=== PATIENT | female | born 1995 | race Caucasian/White ===

== ENCOUNTER 2020-12-16 04:48 | Inpatient (IN) | payer OTHER, SELFPAY ==
[~2020-12-16] VITALS: Ht 157.5 cm; Wt 73.5 kg
[2020-12-16] MEDS ORDERED: NALBUPHINE HCL 10 MG/ML AMP IVP PRN ×2 (05:45→17:45)
[2020-12-16] MEDS ORDERED: TERBUTALINE SULFATE 1 MG/ML VIAL SUBCUT ONE (05:45)
[2020-12-16] MEDS ORDERED: OXYTOCIN/0.9 % SODIUM CHLORIDE 1,000 ML IV SCH ×2 (05:45→18:15)
[2020-12-16] MEDS ORDERED: LR 1,000 ML IV ONE (05:45)
[2020-12-16 06:27] LABS: BASOPHILS % (AUTO) 0.4 % (0.0-2.0); EOSINOPHILS % (AUTO) 0.4 % (0.0-4.0); HEMATOCRIT 38.2 % (36-48); HEMOGLOBIN 13.1 g/dL (12.0-16.0); LYMPHOCYTES % (AUTO) 31.8 % (20.5-51.5); MEAN CORPUSCULAR HEMOGLOBIN 31 pg (27-31); MEAN CORPUSCULAR HGB CONC 34 % (32-36); MEAN CORPUSCULAR VOLUME 91 fL (79.0-98.0); MONOCYTES # (AUTO) 0.9 K/uL (0.0-1.0); MONOCYTES % (AUTO) 9.1 % (1.7-9.3); NEUTROPHILS # (AUTO) 5.5 K/uL (1.8-7.7); NEUTROPHILS % (AUTO) 58.3 % (40.0-70.0); PLATELET COUNT (AUTO) 291 K/uL (130-430); RED BLOOD CELL COUNT(AUTO) 4.22 MIL/uL (4.2-6.2); RED CELL DISTRIBUTION WIDTH 13.2 % (9.0-15.0); WHITE BLOOD COUNT (AUTO) 9.4 K/uL (4.8-10.8)
[2020-12-16] MEDS: LR 1,000 ML IV SCH ×5 (06:37→16:39)
[2020-12-16 08:04] VITALS: BP_SYST 118
[2020-12-16] MEDS ORDERED: ROPIVACAINE HCL/PF 0.2% 200 ML ONE (12:54)
[2020-12-16] MEDS ORDERED: fentaNYL CITRATE/PF 100 MCG/2 ML AMP ONE (12:54)
[2020-12-16] MEDS ORDERED: CEFAZOLIN 2 GM IVPB PREMIX 50 ML IV ONE (16:45)
[2020-12-16] MEDS ORDERED: NS IRRIG SOLN 1000 ML IR ONE (17:06)
[2020-12-16] MEDS ORDERED: LR 1,000 ML IV.SOLN IV ONE (17:06)
[2020-12-16] MEDS ORDERED: ONDANSETRON HCL 4 MG/2 ML VIAL IVP ONE (17:06)
[2020-12-16] MEDS ORDERED: MORPHINE SULFATE 10MG/10ML PF AMP EP ONE (17:06)
[2020-12-16] MEDS ORDERED: NALOXONE HCL 0.4 MG/ML AMP (NARCAN) IVP PRN ×3 (17:45→18:15)
[2020-12-16] MEDS ORDERED: MORPHINE SULFATE 10MG/10ML PF AMP EP SCH (17:45)
[2020-12-16] MEDS ORDERED: ONDANSETRON HCL 4 MG/2 ML VIAL IVP PRN ×2 (17:45)
[2020-12-16] MEDS ORDERED: KETOROLAC TROMETHAMINE 60 MG/2 ML VIAL IM PRN (17:45)
[2020-12-16] MEDS ORDERED: LR 500 ML IV ONE (17:45)
[2020-12-16] MEDS ORDERED: FENT2mCg/mL-ROPIVA0.2%/NS EPID 200 ML EP SCH (17:45)
[2020-12-16] MEDS ORDERED: fentaNYL CITRATE/PF 100 MCG/2 ML AMP IVP PRN ×2 (17:45)
[2020-12-16] MEDS ORDERED: METOCLOPRAMIDE HCL 10 MG/2 ML VIAL IVP PRN (17:45)
[2020-12-16] MEDS ORDERED: OXYCODONE/ACETAMINOPHEN *10*mg/325 mg TABLET PO PRN (18:15)
[2020-12-16] MEDS ORDERED: RHO(D) IMMUNE GLOBULIN/MALTOSE 1500 UNITS/1.3 ML (WINHRO) IM PRN (18:15)
[2020-12-16] MEDS ORDERED: LR 1,000 ML IV SCH (18:15)
[2020-12-16] MEDS ORDERED: TEMAZEPAM 15 MG CAPSULE PO PRN (18:15)
[2020-12-16] MEDS ORDERED: HYDROcodone/ACETAMIN 5-325 MG TAB (NORCO/ VICODIN) PO PRN (18:15)
[2020-12-16] MEDS ORDERED: ANUSOL 1 EA SUPP.RECT (PREPARATION H) RC PRN (18:15)
[2020-12-16] MEDS ORDERED: LANOLIN 7 GM OINT. TP PRN (18:15)
[2020-12-16] MEDS ORDERED: OXYCODONE/ACETAMINOPHEN 5-325 TABLET PO PRN (18:15)
[2020-12-16] MEDS ORDERED: BISACODYL 10 MG/SUPPOSITORY RC PRN (18:15)
[2020-12-16] MEDS ORDERED: DIPH-TET-PERTUS Vaccine 0.5 ML VIAL (ADACEL) I.M. PRN (18:15)
[2020-12-16] MEDS ORDERED: MEASLES,MUMPS&RUBELLA VACC/PF 12500 UNIT/0.5 ML VIAL SUBQ PRN (18:15)
[2020-12-16 18:17] VITALS: BP_SYST 141
[2020-12-16] MEDS: DIPHENHYDRAMINE INJ 50 MG/ML VIAL IVP PRN (20:59)
[2020-12-16] MEDS ORDERED: SENNOSIDES/DOCUSATE SODIUM 1 TAB TABLET(SENOKOT-S) PO SCH (21:00)
[2020-12-17] MEDS: CEFAZOLIN 1 GM IVPB PREMIX 50 ML IV SCH ×3 (00:04→11:55)
[2020-12-17] MEDS: DIPHENHYDRAMINE INJ 50 MG/ML VIAL IVP PRN ×2 (01:05→06:03)
[2020-12-17] MEDS: KETOROLAC TROMETHAMINE 30 MG VIAL IVP SCH ×4 (06:52→23:35)
[2020-12-17 08:19] LABS: BASOPHILS % (AUTO) 0.2 % (0.0-2.0); EOSINOPHILS % (AUTO) 0.1 % (0.0-4.0); HEMATOCRIT 34.4 % (36-48); HEMOGLOBIN 11.8 g/dL (12.0-16.0); LYMPHOCYTES # (AUTO) 2.3 K/uL (1.0-5.5); LYMPHOCYTES % (AUTO) 18.4 % (20.5-51.5); MEAN CORPUSCULAR HEMOGLOBIN 32 pg (27-31); MEAN CORPUSCULAR HGB CONC 34 % (32-36); MEAN CORPUSCULAR VOLUME 92 fL (79.0-98.0); MONOCYTES # (AUTO) 1.1 K/uL (0.0-1.0); MONOCYTES % (AUTO) 8.9 % (1.7-9.3); NEUTROPHILS # (AUTO) 8.9 K/uL (1.8-7.7); NEUTROPHILS % (AUTO) 72.4 % (40.0-70.0); PLATELET COUNT (AUTO) 229 K/uL (130-430); RED BLOOD CELL COUNT(AUTO) 3.74 MIL/uL (4.2-6.2); RED CELL DISTRIBUTION WIDTH 13.3 % (9.0-15.0); WHITE BLOOD COUNT (AUTO) 12.3 K/uL (4.8-10.8)
[2020-12-17] MEDS ORDERED: WITCH HAZEL LEAF 1 MED.PAD MED.PAD TP ONE (16:45)
[2020-12-17] MEDS ORDERED: DERMOPLAST SPRAY TP PRN (16:45)
[2020-12-17] MEDS: IBUPROFEN 600 MG TABLET PO SCH (23:37)
[2020-12-18] MEDS: IBUPROFEN 600 MG TABLET PO SCH ×3 (05:39→18:34)
[2020-12-18] MEDS ORDERED: BUPIVACAINE /PF 0.5% 30 ML VIAL EP ONE (08:43)
[2020-12-18] MEDS: DOCUSATE SODIUM 100 MG CAPSULE PO SCH ×2 (18:33→19:58)
[2020-12-18] MEDS: SIMETHICONE 80 MG TAB.CHEW PO PRN (18:33)
[2020-12-19] MEDS: IBUPROFEN 600 MG TABLET PO SCH ×3 (01:35→12:18)
[2020-12-19] MEDS: SIMETHICONE 80 MG TAB.CHEW PO PRN (12:24)
== END 2020-12-19 13:17 | disposition home or self-care (01) | DRG 788 ==
LOC: SPU 04:48 → OBSVTOIN 04:48
PROVIDERS: ADMIT Specialist; ATTEND Specialist
PROC: 10D00Z1 Extraction of Products of Conception, Low, Open Approach (ICD-10-PCS; principal; 2020-12-16 17:06)
DX: O76 Abnormality in fetal heart rate and rhythm complicating labor and delivery (principal); O69.1XX0 Labor and delivery complicated by cord around neck, with compression, not applicable or unspecified; O69.0XX0 Labor and delivery complicated by prolapse of cord, not applicable or unspecified; Z20.822 Contact with and (suspected) exposure to COVID-19; Z3A.39 39 weeks gestation of pregnancy; Z37.0 Single live birth
CPT/HCPCS: 36415; 59899; 81002; 85025; 86592; 86780; 86886; 86900; 86901; 88307; 94760; J0690; J1200; J1885; J2274; J2405; J2590; J3010; J3490; J7120

== ENCOUNTER 2021-09-01 15:00 | Emergency (ER) | payer OTHER ==
[~2021-09-01] VITALS: Ht 157.5 cm; Wt 56.7 kg
[2021-09-01 15:00] VITALS: BP_SYST 135
--- NOTE | 2021-09-01 15:05 | NUR ---
Patient triaged and placed in waiting room. VSS and patient appears in no acute distress at this time. Accompanied by FAMILY, awaiting available bed, and MD notified of need for MSE.
--- NOTE | 2021-09-01 15:20 | NUR ---
DR GONZALES EVALUATING PT IN TRIAGE ROOM
--- NOTE | 2021-09-01 15:28 | NUR ---
BROUGHT BACK TO BED #4 AND REPORT GIVEN TO JAMES
--- NOTE | 2021-09-01 15:30 | NUR ---
Covid swab done and sent to lab.
--- NOTE | 2021-09-01 15:44 | NUR ---
Urine collected and sent to lab. Urine negative.
[2021-09-01] MEDS ORDERED: QUER1POW MC (16:45)
[2021-09-01] MEDS ORDERED: ZINC50TA69 PO (16:45)
[2021-09-01] MEDS ORDERED: DEC4 PO (16:45)
[2021-09-01 16:51] LABS: BILIRUBIN,URINE NEGATIVE (NEGATIVE); BLOOD, URINE NEGATIVE (NEGATIVE); COLOR,URINE YELLOW (YELLOW); GLUCOSE,URINE NEGATIVE (NEGATIVE); KETONES,URINE 1+ (NEGATIVE); LEUKOCYTE ESTERASE ,URINE NEGATIVE (NEGATIVE); NITRITE, URINE NEGATIVE (NEGATIVE); PROTEIN URINE NEGATIVE (NEGATIVE); UROBILINOGEN,URINE 0.2 (0.2-1.0)
[2021-09-01 16:55] LABS: CLARITY/URINE SLIGHTLY HAZY (CLEAR)
[2021-09-01 16:57] LABS: HCG,QUAL RESULT NEGATIVE (NEGATIVE)
[2021-09-01 16:59] VITALS: BP_SYST 134
--- NOTE | 2021-09-01 17:01 | NUR ---
Patient given written and verbal discharge instructions and verbalizes understanding. ER MD discussed with patient the results and treatment provided. Patient in stable condition. ID arm band removed. Patient educated on pain management and to follow up with PMD. Pain Scale 0/10. Opportunity for questions provided and answered. Medication side effect fact sheet provided.
== END 2021-09-01 17:01 | disposition home or self-care (01) ==
LOC: SED 15:00
DX: U07.1 COVID-19 (principal); R05.9 Cough, unspecified
CPT/HCPCS: 36415; 81003; 81025; 84703; 99283